=== PATIENT | female | born 1980 | race Caucasian/White ===

== ENCOUNTER 2016-11-18 04:53 | Emergency (ER) | payer SELFPAY ==
[~2016-11-18] VITALS: Ht 167.6 cm; Wt 100.0 kg
[~2016-11-18 04:53] MED LIST: BUSP10 PO; GABA300C3 PO; IBUP800T23 PO; LAMI25TA3 PO; LEVO75TA3 PO; TRAZ50TA4 PO
[2016-11-18 04:59] VITALS: BP 145/75; PULSE 86; RESP 14; TEMP 97.8; O2SAT 97
[2016-11-18] MEDS ORDERED: SODIUM CHLOR 0.9% 1000 ML INJ 1,000 ML IV SCH (05:18)
[2016-11-18] MEDS ORDERED: BUSP10TA PO (05:21)
[2016-11-18] MEDS ORDERED: CLON0.2T PO (05:21)
[2016-11-18] MEDS ORDERED: TRAZ50TA12 PO (05:21)
[2016-11-18] MEDS ORDERED: LAMO25 PO (05:21)
--- NOTE | 2016-11-18 05:21 | PD ---
HPI Chief Complaint: GI Complaint Time Seen by Provider: 05:09 Travel History International Travel<30 days: No Contact w/Intl Traveler<30days: No Traveled to known affect area: No History of Present Illness HPI This is a 36-year-old female who presents to the emergency department with nausea and vomiting that started yesterday, constant, persisting overnight with 3 episodes this morning. She's been belching frequently. She says she's been vomiting up bile. She says 2 days ago she had some blood in her stool in her rectum when she wiped and some blood was getting in the toilet. She does have hemorrhoids. She's not been having pain in her rectum at all. She's not sure if these 2 things are related. She denies any fevers or chills. She says she was has some dysuria because she has a bladder sling. She's had a hysterectomy in the past. She says her last bowel movement was 2 days ago which is unusual for her and usually she has a bowel movement every day. 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 PFSH Past Medical History Arthritis: Yes Autoimmune Disease: No Anxiety: Yes Depression: Yes Cardiovascular Problems: No Diabetes: No Endocrine: No Genitourinary: No Immune Disorder: No Implanted Vascular Access Dvce: No Musculoskeletal: Yes Neurologic: No Reproductive: No Respiratory: No Immunizations Current: Yes Thyroid Disease: Yes ?: Not Tubal Ligation: Yes Past Surgical History Genitourinary Surgery: Yes (BLADDER REPAIR AND SLING) Hysterectomy: Yes Social History Alcohol Use: No Tobacco Use: Yes (1 PPD) Substance Use: No (hx of drug use-currently in rehab) Allergies-Medications (Allergen,Severity, Reaction): Coded Allergies: Ultram (Verified Allergy, Severe, Hives, 11/18/16) Reported Meds & Prescriptions Reported Meds & Active Scripts Active Reported Clonidine (Clonidine HCl) 0.2 Mg Tab 0.2 Mg PO HS PRN Buspirone (Buspirone HCl) 10 Mg Tab 10 Mg PO DAILY Lamictal (Lamotrigine) 25 Mg Tab 25 Mg PO DAILY Trazodone (Trazodone HCl) 50 Mg Tab 50 Mg PO HS Review of Systems Except as stated in HPI: all other systems reviewed are Neg Physical Exam Narrative GENERAL: Uncomfortable appearing, actively vomiting. SKIN: Warm and dry. HEAD: Atraumatic. Normocephalic. EYES: Pupils equal and round. No injection or drainage. ENT: Moist mucous membranes NECK: Trachea midline. CARDIOVASCULAR: Regular rate and rhythm. No murmur appreciated. RESPIRATORY: Clear to auscultation. Breath sounds equal bilaterally. GASTROINTESTINAL: Abdomen soft, non-tender, nondistended. MUSCULOSKELETAL: No obvious deformities. NEUROLOGICAL: Awake and alert. No obvious cranial nerve deficits. Moving all extremities. PSYCHIATRIC: Appropriate mood and affect; insight and judgment normal. Data Data Last Documented VS Vital Signs Date Time Temp Pulse Resp B/P Pulse Ox O2 Delivery O2 Flow Rate FiO2 11/18/16 04:59 97.8 86 14 145/75 97 Room Air Orders Complete Blood Count With Diff (11/18/16 05:18) Comprehensive Metabolic Panel (11/18/16 05:18) Lipase (11/18/16 05:18) Urinalysis - C+S If Indicated (11/18/16 05:18) Ct Abd/Pel W Iv Contrast(Rout) (11/18/16 05:18) Iv Access Insert/Monitor (11/18/16 05:18) Ecg Monitoring (11/18/16 05:18) Oximetry (11/18/16 05:18) Ondansetron Inj (Zofran Inj) (11/18/16 05:30) Sodium Chlor 0.9% 1000 Ml Inj (Ns 1000 M (11/18/16 05:18) Sodium Chloride 0.9% Flush (Ns Flush) (11/18/16 05:30) Iohexol 350 Inj (Omnipaque 350 Inj) (11/18/16 06:16) Labs Laboratory Tests Test 11/18/16 11/18/16 05:25 05:40 White Blood Count 11.6 TH/MM3 Red Blood Count 4.24 MIL/MM3 Hemoglobin 14.0 GM/DL Hematocrit 40.7 % Mean Corpuscular Volume 96.0 FL Mean Corpuscular Hemoglobin 33.0 PG Mean Corpuscular Hemoglobin 34.4 % Concent Red Cell Distribution Width 12.5 % Platelet Count 189 TH/MM3 Mean Platelet Volume 10.2 FL Neutrophils (%) (Auto) 53.8 % Lymphocytes (%) (Auto) 35.9 % Monocytes (%) (Auto) 7.3 % Eosinophils (%) (Auto) 2.8 % Basophils (%) (Auto) 0.2 % Neutrophils # (Auto) 6.2 TH/MM3 Lymphocytes # (Auto) 4.2 TH/MM3 Monocytes # (Auto) 0.8 TH/MM3 Eosinophils # (Auto) 0.3 TH/MM3 Basophils # (Auto) 0.0 TH/MM3 CBC Comment DIFF FINAL Differential Comment Sodium Level 138 MEQ/L Potassium Level 4.0 MEQ/L Chloride Level 105 MEQ/L Carbon Dioxide Level 27.2 MEQ/L Anion Gap 6 MEQ/L Blood Urea Nitrogen 12 MG/DL Creatinine 0.78 MG/DL Estimat Glomerular Filtration 85 ML/MIN Rate Random Glucose 95 MG/DL Calcium Level 8.3 MG/DL Total Bilirubin 0.5 MG/DL Aspartate Amino Transf 16 U/L (AST/SGOT) Alanine Aminotransferase 15 U/L (ALT/SGPT) Alkaline Phosphatase 69 U/L Total Protein 7.0 GM/DL Albumin 3.3 GM/DL Lipase 101 U/L Urine Color YELLOW Urine Turbidity HAZY Urine pH 6.0 Urine Specific Sneads 1.028 Urine Protein TRACE mg/dL Urine Glucose (UA) NEG mg/dL Urine Ketones NEG mg/dL Urine Occult Blood SMALL Urine Nitrite NEG Urine Bilirubin NEG Urine Urobilinogen LESS THAN 2.0 MG/DL Urine Leukocyte Esterase NEG Urine RBC 10 /hpf Urine WBC 3 /hpf Urine Squamous Epithelial 6 /hpf Cells Urine Hyaline Casts 4 /lpf Urine Mucus MANY /lpf Microscopic Urinalysis Comment CULT NOT INDICATED MDM Medical Decision Making Medical Screen Exam Complete: Yes Emergency Medical Condition: Yes Interpretation(s) Afebrile, no tachycardia, hypertensive Mild leukocytosis Electrolytes are reassuring Lipase is normal Urinalysis: Some blood Last 24 hours Impressions Abdomen/Pelvis CT 11/18/16 0518 Signed Impressions: Service Date/Time: Friday, November 18, 2016 06:14 - CONCLUSION: 1. Left ovarian cyst. 2. Otherwise unremarkable. Reji Rhodes MD Differential Diagnosis Urinary tract infection, pyelonephritis, bowel obstruction, gastroenteritis Narrative Course This is a 36-year-old female who presents to the emergency department with vomiting for 2 days associated with some rectal bleeding. She has no abdominal pain. She is placed on a monitor and an IV was established. Labs are obtained which were all reassuring with a normal hemoglobin. CT abdomen and pelvis was negative for surgical etiology of the patient's symptoms. She was given IV fluids and IV Zofran and she feels much better. She was Hemoccult positive and had internal and external hemorrhoids on exam. I think that her blood in her stool is likely due to hemorrhoids and I think it's unrelated to her current presentation of vomiting. I did ask her to return to the emergency department if she starts to pass blood clots, gets lightheaded or dizzy or develops worsening symptoms. She is amenable to going home and following up as an outpatient. [facility] Point of Care Internal Pos. & Neg. Controls: Passed Fecal Specimen Occult Blood: Positive Diagnosis Primary Impression: Vomiting Qualified Code: R11.2 - Non-intractable vomiting with nausea, unspecified vomiting type Patient Instructions: General Instructions Additional Instructions: If you develop severe or worsening abdominal pain, fever>100.4, persistent vomiting or inability to eat or drink return to the emergency department immediately. Follow up with your primary care physician in 1-2 days for a check-up. If your rectal bleeding persists you should follow up with a can reforming machine operator. Med/Other Pt SpecificInfo: Prescription(s) given Scripts Ondansetron Odt (Zofran Odt)4 Mg Tab4 Mg SL Q6HR PRN (Nausea/Vomiting) #15 TAB Ref 0 Prov:Bri Brnatley MD 11/18/16 Disposition: 01 DISCHARGE HOME Condition: Stable Bri Brantley MD Nov 18, 2016 05:21
[2016-11-18] MEDS ORDERED: ONDANSETRON HCL 4 MG/2 ML VIAL IVP ONE (05:30)
[2016-11-18] MEDS ORDERED: SODIUM CHLORIDE 0.9% FLUSH 5 ML FLUSH IVF PRN (05:30)
[2016-11-18 06:02] LABS: AUTOMATED NEUTROPHIL # 6.2 TH/MM3 (1.8-7.7); BASOPHIL % 0.2 % (0.0-2.0); EOSINOPHIL # 0.3 TH/MM3 (0-0.4); EOSINOPHIL % 2.8 % (0.0-4.0); HEMATOCRIT 40.7 % (35.0-46.0); HEMO FLAGS DIFF FINAL; LYMPH % 35.9 % (9.0-44.0); LYMPHOCYTE # 4.2 TH/MM3 (1.0-4.8); MEAN CORPUSCULAR HGB CONC 34.4 % (32.0-36.0); MONO % 7.3 % (0.0-8.0); NEUT % 53.8 % (16.0-70.0); PLATELET COUNT 189 TH/MM3 (150-450); RED BLOOD COUNT 4.24 MIL/MM3 (4.00-5.30); RED CELL DISTRIBUTION WIDTH 12.5 % (11.6-17.2); WHITE BLOOD COUNT 11.6 TH/MM3 (4.0-11.0)
[2016-11-18 06:14] LABS: ANION GAP 6 MEQ/L (5-15); AST (GOT) 16 U/L (15-37); BICARBONATE 27.2 MEQ/L (21.0-32.0); BLOOD UREA NITROGEN 12 MG/DL (7-18); CHLORIDE 105 MEQ/L (98-107); GLOMERULAR FILTRATION RATE 85 ML/MIN (>89); SODIUM (NA) 138 MEQ/L (136-145)
[2016-11-18 06:15] LABS: BLOOD, URINE SMALL (NEG); COMMENT (UR) CULT NOT INDICATED; CULTURE IF INDICATED CULT NOT INDICATED; GLUCOSE,URINE NEG (NEG); HYALINE CAST, URINE 4 /lpf (RARE); KETONE, URINE NEG (NEG); MUCUS URINE MANY /lpf (OCC); NITRITE,URINE NEG (NEG); SQUAMOUS EPITHELIAL CELL URINE 6 /hpf (0-5); URINE COLOR YELLOW (YELLW/STRAW)
[2016-11-18] MEDS ORDERED: IOHEXOL 350 MG/ML 10 ML VIAL (for RAD DIAG) IV ONE (06:16)
[2016-11-18 06:22] LABS: ALKALINE PHOSPHATASE 69 U/L (45-117); ALT (GPT) 15 U/L (10-53); TOTAL BILIRUBIN ADULT 0.5 MG/DL (0.2-1.0)
--- NOTE | 2016-11-18 06:44 | RADRPT ---
EXAM DATE/TIME: 11/18/2016 06:14 [facility] COMPARISON: CT ABDOMEN & PELVIS W CONTRAST, October 13, 2012, 1:00. INDICATIONS : Nausea and vomiting with blood in stool. IV CONTRAST: 100 cc Omnipaque 350 (iohexol) IV ORAL CONTRAST: No oral contrast ingested. RADIATION DOSE: 16.60 CTDIvol (mGy) MEDICAL HISTORY : None SURGICAL HISTORY : Hysterectomy. Tubal ligation.Bladder sling ENCOUNTER: Initial ACUITY: 2 days PAIN SCALE: 0/10 LOCATION: abdomen TECHNIQUE: Volumetric scanning of the abdomen and pelvis was performed. Using automated exposure control and ad justment of the mA and/or kV according to patient size, radiation dose was kept as low as reasonably achievable to obtain optimal diagnostic quality images. FINDINGS: LOWER LUNGS: The visualized lower lungs are clear. LIVER: Homogeneous density without lesion. There is no dilation of the biliary tree. No calcified gallston es. SPLEEN: Normal size without lesion. PANCREAS: Within normal limits. KIDNEYS: Normal in size and shape. There is no mass, stone or hydronephrosis. ADRENAL GLANDS: Within normal limits. VASCULAR: There is no aortic aneurysm. BOWEL/MESENTERY: The stomach, small bowel, and colon demonstrate no acute abnormality. There is no free intraperitone al air or fluid. ABDOMINAL WALL: Within normal limits. RETROPERITONEUM: There is no lymphadenopathy. BLADDER: No wall thickening or mass. REPRODUCTIVE: Hysterectomy. 3.3 x 2.5 cm simple cyst left ovary. INGUINAL: There is no lymphadenopathy or hernia. MUSCULOSKELETAL: Within normal limits for patient age. CONCLUSION: 1. Left ovarian cyst. 2. Otherwise unremarkable. Reji Rhodes MD on November 18, 2016 at 6:40 Board Certified Radiologist. This report was verified electronically.
[2016-11-18] MEDS ORDERED: ZOFR4TAB3 SL (06:59)
[2016-11-18] MEDS ORDERED: ONDANSETRON HCL 4 MG/2 ML VIAL IV ONE (07:15)
== END 2016-11-18 07:18 | disposition home or self-care (01) ==
LOC: NEPC 04:53
DX: R11.2 Nausea with vomiting, unspecified (principal)
CPT/HCPCS: 74177; 80053; 81001; 83690; 85025; 96361; 96374; 96376; 99284; J2405; J7030; Q9967

== ENCOUNTER 2017-07-09 14:36 | Emergency (ER) | payer MEDICAID ==
[~2017-07-09 14:36] MED LIST changes: -BUSP10 PO; +BUSP10TA PO; +CLON0.2T PO; -GABA300C3 PO; -IBUP800T23 PO; -LAMI25TA3 PO; +LAMO25 PO; -LEVO75TA3 PO; +TRAZ50TA12 PO; -TRAZ50TA4 PO; +ZOFR4TAB3 SL
[2017-07-09 14:43] VITALS: BP 121/81; PULSE 83; RESP 20; TEMP 98.9; O2SAT 97
[2017-07-09] MEDS ORDERED: SERO200T PO (14:59)
[2017-07-09] MEDS ORDERED: PRED20 PO (15:40)
[2017-07-09] MEDS ORDERED: LORATADINE 10 MG TAB PO ONE (15:45)
[2017-07-09] MEDS ORDERED: methylPREDNISolone SOD SUCC 125 MG/2 ML VIAL IM ONE (15:45)
[2017-07-09] MEDS ORDERED: FAMOTIDINE 20 MG TAB PO ONE (15:45)
--- NOTE | 2017-07-09 15:46 | PD ---
HPI Chief Complaint: Facial Pain or Swelling Time Seen by Provider: 15:22 Travel History International Travel<30 days: No Contact w/Intl Traveler<30days: No Traveled to known affect area: No History of Present Illness HPI 37-year-old female presents to the emergency room for evaluation of facial swelling since yesterday. States 2 days ago she applied her daughter's primer for the second time ever. The following day (yesterday) she woke up with mild swelling but states it just felt like just she didn't get enough sleep. When she woke up today the swelling was significantly worse and her skin started to burn. She has been applying cool compresses without relief in symptoms. She took 50 mg Benadryl 3 hours prior to arrival. She denies sore throat, difficulty breathing, or chest tightness. No other environmental allergies. No other new environmental, medication, or food exposures. PFSH Past Medical History Arthritis: Yes Autoimmune Disease: No Anxiety: Yes Depression: Yes Cardiovascular Problems: No Diabetes: No Endocrine: No Genitourinary: No Immune Disorder: No Implanted Vascular Access Dvce: No Musculoskeletal: Yes Neurologic: No Reproductive: No Respiratory: No Immunizations Current: Yes Thyroid Disease: Yes Tubal Ligation: Yes Past Surgical History Genitourinary Surgery: Yes (BLADDER REPAIR AND SLING) Hysterectomy: Yes Social History Alcohol Use: No Tobacco Use: Yes (1 PPD) Substance Use: No (hx of drug use-currently in rehab) Allergies-Medications (Allergen,Severity, Reaction): Coded Allergies: tramadol (Unverified Allergy, Severe, Hives, 07/09/17) Reported Meds & Prescriptions Reported Meds & Active Scripts Active Reported Seroquel (Quetiapine Fumarate) 200 Mg Tab 200 Mg PO HS Buspirone (Buspirone HCl) 10 Mg Tab 10 Mg PO DAILY Lamictal (Lamotrigine) 25 Mg Tab 25 Mg PO DAILY Review of Systems Except as stated in HPI: all other systems reviewed are Neg Physical Exam Narrative GENERAL: Well-nourished, well-developed female in no acute distress. Afebrile. Ambulatory. SKIN: Focused skin assessment warm/dry. Mild erythema throughout the face. Very mild nonpitting edema generalized throughout the face. HEAD: Normocephalic. EYES: No scleral icterus. No injection or drainage. NECK: Supple, trachea midline. No JVD or lymphadenopathy. CARDIOVASCULAR: Regular rate and rhythm without murmurs, gallops, or rubs. RESPIRATORY: Breath sounds equal bilaterally. No accessory muscle use. PSYCHIATRIC: No delusional thought processes. No hallucinations. Data Data Last Documented VS Vital Signs Date Time Temp Pulse Resp B/P (MAP) Pulse Ox O2 Delivery O2 Flow Rate FiO2 07/09/17 14:43 98.9 83 20 121/81 (94) 97 Orders Orders Methylprednisolone So Succ Inj (Solumedr (07/09/17 15:45) Loratadine (Claritin) (07/09/17 15:45) Famotidine (Pepcid) (07/09/17 15:45) MDM Medical Decision Making Medical Screen Exam Complete: Yes Emergency Medical Condition: Yes Medical Record Reviewed: Yes Differential Diagnosis Allergic reaction, contact dermatitis, urticaria, edema Narrative Course 37-year-old female presents to the emergency room for evaluation of facial swelling for the past 2 days. Swelling started after patient applied makeup for the second time ever. It is worsening over time. She denies sore throat, chest tightness, difficulty breathing. Vital signs stable. She is well- appearing. There is mild to moderate erythema and edema of the face as compared to photo on her phone in the distribution of makeup. This is allergic reaction. Patient was given 125 mg of Solu-Medrol, Pepcid, and Claritin the emergency room. She was discharged with prescription for prednisone, told to avoid the makeup, and told to follow up with primary care physician or return for worsening symptoms. She understands and agrees to plan. Diagnosis Primary Impression: Allergic reaction Qualified Codes: T78.40XA - Allergy, unspecified, initial encounter Referrals: Primary Care Physician Additional Instructions: Rest and drink plenty of fluids. Take prednisone as directed, until gone. Continue taking Benadryl as directed on box. Take Pepcid as directed on box. Follow-up with a primary care physician. Return to the emergency room for worsening symptoms. Med/Other Pt SpecificInfo: Prescription(s) given Scripts Prednisone (Prednisone) 20 Mg Tab 40 MG PO DAILY, #10 TAB 0 Refills Take 40 mg (2 tablets) daily for 5 days Prov: HuynhNae brand 07/09/17 Disposition: 01 DISCHARGE HOME Condition: Stable Isi Cross Jul 09, 2017 15:46
== END 2017-07-09 16:15 | disposition home or self-care (01) ==
LOC: PHEFT 14:36
DX: T78.40XA Allergy, unspecified, initial encounter (principal); F17.210 Nicotine dependence, cigarettes, uncomplicated; M19.90 Unspecified osteoarthritis, unspecified site; E07.9 Disorder of thyroid, unspecified
CPT/HCPCS: 96372; 99284; J2930

== ENCOUNTER 2017-08-20 04:45 | Observation (INO) | payer MEDICAID ==
[~2017-08-20] VITALS: Ht 167.6 cm; Wt 105.0 kg
[~2017-08-20 04:45] MED LIST changes: -CLON0.2T PO; +PRED20 PO; +SERO200T PO; -TRAZ50TA12 PO; -ZOFR4TAB3 SL
[2017-08-20 04:48] VITALS: BP 122/63; PULSE 116; RESP 22; TEMP 98.3; O2SAT 98
[2017-08-20] MEDS ORDERED: PROZ20CA11 PO (04:51)
[2017-08-20] MEDS ORDERED: BUSP15TA PO (04:57)
[2017-08-20 04:58] VITALS: RESP 22; O2SAT 98
[2017-08-20] MEDS ORDERED: SODIUM CHLOR 0.9% 1000 ML INJ 1,000 ML IV ONE (05:00)
[2017-08-20] MEDS ORDERED: ONDANSETRON HCL 4 MG/2 ML VIAL IV ONE (05:00)
[2017-08-20] MEDS ORDERED: PANTOPRAZOLE SODIUM 40 MG VIAL IV PUSH ONE ×2 (05:00→07:00)
--- NOTE | 2017-08-20 05:04 | PD ---
HPI Chief Complaint: Chest Pain Time Seen by Provider: 04:56 Travel History International Travel<30 days: No Contact w/Intl Traveler<30days: No Traveled to known affect area: No History of Present Illness HPI The patient is a 37 year old female who presents to the [facility] emergency department with a history of chest pain and shortness of breath that she reports began at work this evening. She reports that chest pain seemed to be improving with resting and then would recur. She reports that the pain is in the center of her chest and a pressure sensation. She reports that bending over or exerting herself made it worse. The patient reports that over the last 2 days she has relapsed with using methamphetamines and Dariela. She reports that she had been clean and sober for 19 months up until the relapsed. She reports that she last used at 8 p.m. The patient denies ever having chest pain previously. She reports that she does have a history of anxiety. She reports that she has not been taking her psychiatric medications for the last 2 days. The patient reports feeling twitchy and anxious. The patient reports that she finally decided upon ambulance services when she became nauseated and vomited twice. She reports that the vomit appeared to be containing coffee-ground emesis. The patient denies having any blood in her stool or black or tarry stools. She reports having problems with chronic constipation. Her last bowel movement was 2 days ago. On review of systems otherwise, the patient denies having any known recent fevers, cough, congestion, neck pain, abdominal pain, urinary symptoms, or neurologic symptoms. LMP: Status post hysterectomy PFSH Past Medical History Narrative Medical The patient's past medical history is significant for anxiety and depression, arthritis Arthritis: Yes Autoimmune Disease: No Anxiety: Yes Depression: Yes Cardiovascular Problems: No Diabetes: No Endocrine: No Genitourinary: No Immune Disorder: No Implanted Vascular Access Dvce: No Musculoskeletal: Yes Neurologic: No Reproductive: No Respiratory: No Immunizations Current: Yes Thyroid Disease: Yes ?: Not Tubal Ligation: Yes Past Surgical History Narrative Surgical The patient's past surgical history is significant for a bladder sling, hysterectomy, right knee surgery. Genitourinary Surgery: Yes (BLADDER REPAIR AND SLING) Hysterectomy: Yes (PARTIAL) Social History Alcohol Use: No Tobacco Use: Yes (1 PPD) Substance Use: No (hx of drug use-currently in rehab) Allergies-Medications (Allergen,Severity, Reaction): Coded Allergies: tramadol (Unverified Allergy, Severe, Hives, 08/20/17) Reported Meds & Prescriptions Reported Meds & Active Scripts Active Reported Buspirone (Buspirone HCl) 15 Mg Tab 15 Mg PO BID Prozac (Fluoxetine HCl) 20 Mg Cap 20 Mg PO BID Seroquel (Quetiapine Fumarate) 200 Mg Tab 200 Mg PO HS Lamictal (Lamotrigine) 25 Mg Tab 25 Mg PO DAILY Review of Systems Except as stated in HPI: all other systems reviewed are Neg General / Constitutional: No: Fever Eyes: No: Visual changes HENT: No: Headaches, Rhinorrhea, Congestion Cardiovascular: Positive: Chest Pain or Discomfort, Dyspnea on exertion Respiratory: No: Shortness of Breath Gastrointestinal: Positive: Nausea, Vomiting, Hematemesis, Constipation, No: Diarrhea, Abdominal Pain, Hematochezia, Changes in Bowel Habits, Indigestion, Loss of Appetite Genitourinary: No: Dysuria Musculoskeletal: No: Pain Skin: No Rash Neurologic: No: Weakness Psychiatric: No: Depression Endocrine: No: Polydipsia Hematologic/Lymphatic: No: Easy Bruising Physical Exam Narrative General: The patient is a well-developed well-nourished female, anxious appearing on arrival, otherwise in no acute distress. Head and Neck exam: Head is normocephalic atraumatic. Eyes: EOMI, pupils are equal round and reactive to light. Nose: Midline septum with pink mucous membranes Mouth: Dentition unremarkable. Moist mucus membranes. Posterior oropharynx is not erythematous. No tonsillar hypertrophy. Uvula midline. Airway patent. Neck: No palpable lymphadenopathy. No nuchal rigidity. No thyromegaly. Cardiovascular: Sinus tachycardia in the low 100s without murmurs, gallops, or rubs. No pulse deficit to the extremities on simultaneous auscultation and palpation of her radial artery. Lungs: Clear to auscultation bilaterally. No wheezes, rhonchi, or rales. Abdomen: Soft, without tenderness to palpation in all 4 quadrants of the abdomen. No guarding, rebound, or rigidity. Normal bowel sounds are audible. No tenderness on palpation of McBurney's point. Extremities: No clubbing, cyanosis, or edema. 2+ pulses in all 4 extremities. No calf tenderness on palpation. Back: No spinous process tenderness to palpation. No costovertebral angle tenderness to palpation. Neurologic Exam: Grossly nonfocal. The patient is not tremulous. Skin Exam: No rash noted. Intact skin that is warm and dry. Data Data Last Documented VS Vital Signs Date Time Temp Pulse Resp B/P (MAP) Pulse Ox O2 Delivery O2 Flow Rate FiO2 08/20/17 04:58 22 98 Room Air 08/20/17 04:48 98.3 116 122/63 (82) Orders Orders Electrocardiogram (08/20/17 04:56) Complete Blood Count With Diff (08/20/17 04:56) Comprehensive Metabolic Panel (08/20/17 04:56) Creatine Kinase (Cpk) (08/20/17 04:56) Ckmb (Isoenzyme) Profile (08/20/17 04:56) Troponin I (08/20/17 04:56) B-Type Natriuretic Peptide (08/20/17 04:56) Prothrombin Time / Inr (Pt) (08/20/17 04:56) Act Partial Throm Time (Ptt) (08/20/17 04:56) Lipase (08/20/17 04:56) Urinalysis - C+S If Indicated (08/20/17 04:56) Magnesium (Mg) (08/20/17 04:56) Chest, Single Ap (08/20/17 04:56) Iv Access Insert/Monitor (08/20/17 04:56) Ecg Monitoring (08/20/17 04:56) Oximetry (08/20/17 04:56) Type And Screen (08/20/17 04:56) Sodium Chlor 0.9% 1000 Ml Inj (Ns 1000 M (08/20/17 05:00) Ondansetron Inj (Zofran Inj) (08/20/17 05:00) Pantoprazole Inj (Protonix Inj) (08/20/17 05:00) Nitroglycerin 2% Oint (Nitroglycerin 2% (08/20/17 05:15) CKMB (08/20/17 05:13) CKMB% (08/20/17 05:13) Potassium Chloride Eff (K-Lyte Cl Eff) (08/20/17 06:45) Labs Laboratory Tests Test 08/20/17 05:13 White Blood Count 12.4 TH/MM3 Red Blood Count 4.06 MIL/MM3 Hemoglobin 13.1 GM/DL Hematocrit 38.8 % Mean Corpuscular Volume 95.6 FL Mean Corpuscular Hemoglobin 32.3 PG Mean Corpuscular Hemoglobin Concent 33.7 % Red Cell Distribution Width 12.9 % Platelet Count 222 TH/MM3 Mean Platelet Volume 9.6 FL Neutrophils (%) (Auto) 64.7 % Lymphocytes (%) (Auto) 22.8 % Monocytes (%) (Auto) 9.8 % Eosinophils (%) (Auto) 2.0 % Basophils (%) (Auto) 0.7 % Neutrophils # (Auto) 8.0 TH/MM3 Lymphocytes # (Auto) 2.8 TH/MM3 Monocytes # (Auto) 1.2 TH/MM3 Eosinophils # (Auto) 0.2 TH/MM3 Basophils # (Auto) 0.1 TH/MM3 CBC Comment DIFF FINAL Differential Comment Prothrombin Time 12.5 SEC Prothromb Time International Ratio 1.1 RATIO Activated Partial Thromboplast Time 25.9 SEC Blood Urea Nitrogen 18 MG/DL Creatinine 0.84 MG/DL Random Glucose 93 MG/DL Total Protein 7.6 GM/DL Albumin 3.8 GM/DL Calcium Level 9.0 MG/DL Magnesium Level 2.0 MG/DL Alkaline Phosphatase 82 U/L Aspartate Amino Transf (AST/SGOT) 30 U/L Alanine Aminotransferase (ALT/SGPT) 26 U/L Total Bilirubin 0.3 MG/DL Sodium Level 139 MEQ/L Potassium Level 3.1 MEQ/L Chloride Level 107 MEQ/L Carbon Dioxide Level 22.8 MEQ/L Anion Gap 9 MEQ/L Estimat Glomerular Filtration Rate 77 ML/MIN Total Creatine Kinase 652 U/L Creatine Kinase MB 7.6 NG/ML Creatine Kinase MB % 1.2 % Troponin I LESS THAN 0.02 NG/ML B-Type Natriuretic Peptide LESS THAN 2 PG/ML Lipase 62 U/L MDM Medical Decision Making Medical Screen Exam Complete: Yes Emergency Medical Condition: Yes Medical Record Reviewed: Yes Differential Diagnosis Withdrawal syndrome, versus acute intoxication, versus rhabdomyolysis, versus anxiety disorder, versus acute coronary syndrome, versus acid reflux, versus gastritis, versus Diamante-Hagan tear, versus peptic ulcer disease, versus hemorrhagic esophagitis Narrative Course During the course of the patients emergency department visit, the patients history, examination, and differential diagnosis were reviewed with the patient. The patient was placed on a mineralogy teacher with oximetry and frequent blood pressure monitoring. The patient had IV access obtained and blood work sent for analysis. The patient had an ECG done on arrival. The patient's ECG reveals a sinus rhythm with a heart rate of 90 with T wave inversions in leads 2 , 3, aVF, V1, V3, V4, V5, V6. No acute ST segment elevation. The patient was initially provided normal saline 1 L IV fluid bolus, Zofran 4 mg IV, Protonix 40 mg IV. The patients laboratory studies were reviewed and remarkable for a white count of 12.4, hemoglobin 13.1, platelets 222 with 9.8 monos, CMP is remarkable for potassium of 3.1 which was supplemented orally with potassium chloride, GFR 77, CPK 652, MB percent 1.2, troponin I less than 0.02, BNP is less than 2, lipase 62, PT 12.5, PTT 25.9 Radiology studies were reviewed and remarkable for a chest x-ray that shows no acute abnormality. The patient will be admitted to the hospital for continued evaluation, rule out serial cardiac enzyme protocol given the patient's T wave inversions and coffee ground emesis. Regarding the possibility of PE, pulmonary embolism Wells score is 1.5. A d- dimer is ordered to evaluate for evidence of elevation given the patient's tachycardia, however as the patient is low risk of the d-dimer is negative, no further imaging would be recommended. The patients results were discussed with the patient, including the plan of care. I explained that further testing and/ or monitoring is indicated based on the patients history, examination, and/ or laboratory findings. Therefore, I recommended admission for additional evaluation. The patient expressed understanding and was agreeable with this plan. The patient was admitted to the hospital in stable condition and sent to a bed under the care of the [facility] service. Physician Communication Physician Communication The patient's case including history, pertinent physical examination findings, and laboratory studies were discussed with Dr. Forrest. It was agreed that the patient would be admitted to the [facility] Hospital[facility] service. Diagnosis Primary Impression: Coffee ground emesis Additional Impression: Chest pain, rule out acute myocardial infarction Admitting Information Admitting Physician Requests: Edda Forrester MD Aug 20, 2017 05:04
[2017-08-20] MEDS ORDERED: NITROGLYCERIN 2% OINT 1 GM PACKET TOPICAL ONE (05:15)
[2017-08-20 05:34] LABS: BASOPHIL # 0.1 TH/MM3 (0-0.2); BASOPHIL % 0.7 % (0.0-2.0); EOSINOPHIL # 0.2 TH/MM3 (0-0.4); HEMATOCRIT 38.8 % (35.0-46.0); HEMOGLOBIN 13.1 GM/DL (11.6-15.3); LYMPH % 22.8 % (9.0-44.0); LYMPHOCYTE # 2.8 TH/MM3 (1.0-4.8); MEAN CELL VOLUME 95.6 FL (80.0-100.0); MEAN CORPUSCULAR HEMOGLOBIN 32.3 PG (27.0-34.0); MEAN CORPUSCULAR HGB CONC 33.7 % (32.0-36.0); MEAN PLATELET VOLUME 9.6 FL (7.0-11.0); MONO % 9.8 % (0.0-8.0); MONOCYTE # 1.2 TH/MM3 (0-0.9); NEUT % 64.7 % (16.0-70.0); PLATELET COUNT 222 TH/MM3 (150-450); RED BLOOD COUNT 4.06 MIL/MM3 (4.00-5.30); RED CELL DISTRIBUTION WIDTH 12.9 % (11.6-17.2); WHITE BLOOD COUNT 12.4 TH/MM3 (4.0-11.0)
[2017-08-20 05:44] LABS: INTERNATIONAL NORMALIZED RATIO 1.1 RATIO; PROTHROMBIN TIME - PATIENT 12.5 SEC (9.8-11.6)
[2017-08-20 06:10] LABS: ALBUMIN 3.8 GM/DL (3.4-5.0); ALT (GPT) 26 U/L (10-53); AST (GOT) 30 U/L (15-37); BICARBONATE 22.8 MEQ/L (21.0-32.0); BLOOD UREA NITROGEN 18 MG/DL (7-18); CHLORIDE 107 MEQ/L (98-107); CREATININE 0.84 MG/DL (0.50-1.00); GLOMERULAR FILTRATION RATE 77 ML/MIN (>89); GLUCOSE,RANDOM 93 MG/DL (74-106); LIPASE 62 U/L (73-393); SODIUM (NA) 139 MEQ/L (136-145)
[2017-08-20 06:14] LABS: ALKALINE PHOSPHATASE 82 U/L (45-117); TOTAL BILIRUBIN ADULT 0.3 MG/DL (0.2-1.0); TOTAL PROTEIN 7.6 GM/DL (6.4-8.2); TROPONIN I LESS THAN 0.02 NG/ML (0.02-0.05)
[2017-08-20] MEDS ORDERED: POTASSIUM CHLORIDE 25 MEQ EFFERVESCENT TAB PO ONE (06:45)
[2017-08-20] MEDS ORDERED: SODIUM CHLOR 0.9% 1000 ML INJ 1,000 ML IV SCH (06:51)
[2017-08-20] MEDS ORDERED: SODIUM CHLORIDE 0.9% FLUSH 10 ML FLUSH IV FLUSH PRN (07:00)
[2017-08-20] MEDS ORDERED: SENNOSIDES 8.6 MG TAB PO PRN (07:00)
[2017-08-20] MEDS ORDERED: ONDANSETRON HCL 4 MG/2 ML VIAL IVP PRN (07:00)
[2017-08-20] MEDS ORDERED: MAGNESIUM HYDROXIDE SUSP 30 ML CUP PO PRN (07:00)
[2017-08-20] MEDS ORDERED: BISACODYL 10 MG SUPP RECTAL PRN (07:00)
[2017-08-20] MEDS ORDERED: NALOXONE HCL 0.4 MG/ML AMP IV PUSH PRN (07:00)
[2017-08-20] MEDS ORDERED: LACTULOSE SYRUP 20 GM/30 ML CUP PO PRN (07:00)
--- NOTE | 2017-08-20 07:04 | RADRPT ---
EXAM DATE/TIME: 08/20/2017 05:03 [facility] COMPARISON: No previous studies available for comparison. INDICATIONS : Chest pain- Vomiting blood MEDICAL HISTORY : None. SURGICAL HISTORY : Tubal ligation. Hysterectomy. ENCOUNTER: Initial ACUITY: 1 day PAIN SCORE: 7/10 LOCATION: Bilateral chest FINDINGS: A single view of the chest demonstrates the lungs to be symmetrically aerated without evidence of mas s, infiltrate or effusion. The cardiomediastinal contours are unremarkable. Osseous structures are intact. CONCLUSION: No acute disease. Naeem Petit MD on August 20, 2017 at 7:02 Board Certified Radiologist. This report was verified electronically.
--- NOTE | 2017-08-20 07:37 | HHI.HP ---
HPI Service [facility] Primary Care Physician No Primary Care Physician Admission Diagnosis Coffee ground emesis, cp r/o mi Diagnoses: Chief Complaint: chest pain, shortness of breath, vomiting Travel History International Travel<30 Days: No Contact w/Intl Traveler <30 Da: No Traveled to Known Affected Are: No History of Present Illness Written by Yissel Denton, acting as scribe for Dr. Woody on 08/20/17 at 07: 35. 37-year-old female with history of bipolar disorder, anxiety, IV drug abuse, presents with a 1 day history of chest pain, shortness of breath, and coffee ground emesis. The patient reports she has been clean and sober for the past 19months however relapsed 2 days ago and started injecting both methamphetamine and Rosy. She started to not feel well yesterday with chest pain and shortness of breath. She reports diffuse anterior and substernal chest pressure described as dull and achy, worse with leaning forward, relieved by lying back, associated with diaphoresis, shortness of breath. Last night she became acutely nauseous and vomited coffee ground emesis twice. Denies any recent fever/ chills. The patient admits she hasn't been eating or drinking normally in the past 2 days and she feels very dehydrated. She also hasn't had a BM in 4 days. Denies any specific abdominal pains. She has felt lightheaded but denies any loss of consciousness. She was unsure if her symptoms were just related to the drugs or severe indigestion. Last drug use 8pm last night 08/19 prior to presenting to the hospital. She has not been taking her psychiatric medications in 3-4 days. She sees a psychiatrist at [facility]. She denies any other medical complaints at this time. Review of Systems Except as stated in HPI: all other systems reviewed are Neg Past Family Social History Past Medical History Bipolar disorder Anxiety Past Surgical History Hysterectomy in 2013 Bladder sling Right knee surgery Reported Medications Buspirone (Buspirone HCl) 15 Mg Tab 15 Mg PO BID Prozac (Fluoxetine HCl) 20 Mg Cap 20 Mg PO BID Seroquel (Quetiapine Fumarate) 200 Mg Tab 200 Mg PO HS Lamictal (Lamotrigine) 25 Mg Tab 25 Mg PO DAILY Allergies: Coded Allergies: tramadol (Unverified Allergy, Severe, Hives, 08/20/17) Active Ordered Medications Current Medications Medications (Trade) Dose Ordered Sig/Kareen Route Start Time Stop Time Status Last Admin Sodium Chloride 1,000 ml @ 100 mls/hr Q10H IV 08/20/17 06:51 08/20/17 07:29 (NS Flush) 2 ml UNSCH PRN IV FLUSH 08/20/17 07:00 (NS Flush) 2 ml BID IV FLUSH 08/20/17 09:00 (Zofran Inj) 4 mg Q6H PRN IVP 08/20/17 07:00 (Narcan Inj) 0.4 mg UNSCH PRN IV PUSH 08/20/17 07:00 (Milk Of Magnesia Liq) 30 ml Q12H PRN PO 08/20/17 07:00 (Senokot) 17.2 mg Q12H PRN PO 08/20/17 07:00 (Dulcolax Supp) 10 mg DAILY PRN RECTAL 08/20/17 07:00 (Lactulose Liq) 30 ml DAILY PRN PO 08/20/17 07:00 (Protonix Inj) 40 mg Q12H IV PUSH 08/20/17 21:00 Family History Mother with ovarian cancer in her 30s, with COPD at age 49 Father with skin cancer Mother with heart disease Social History Smokes tobacco 1PPD since age 15 Very rare alcohol use, last drink 1.5years ago Previously used drugs from age 30 to 34 (mostly pain pills, some meth), then clean for 19months, now relapsed x2 days, injecting and smoking methamphetamine and rosy Physical Exam Vital Signs Vital Signs Date Time Temp Pulse Resp B/P (MAP) Pulse Ox O2 Delivery O2 Flow Rate FiO2 08/20/17 04:58 22 98 Room Air 08/20/17 04:48 98.3 116 22 122/63 (82) 98 Physical Exam GENERAL: Well-nourished, well-developed middle aged female patient in [facility]. SKIN: Warm and dry. No rash. HEAD: Normocephalic. Atraumatic. EYES: Pupils equal and round. No scleral icterus. No injection or drainage. ENT: No nasal bleeding or discharge. Mucous membranes pink and moist. NECK: Supple. Trachea midline. CARDIOVASCULAR: Regular rate and rhythm. S1, S2 noted. No murmur appreciated. RESPIRATORY: No accessory muscle use. Clear to auscultation. Breath sounds equal bilaterally. GASTROINTESTINAL: Abdomen soft, non-tender, nondistended. Normoactive bowel sounds x4. MUSCULOSKELETAL: No obvious deformities. Extremities without clubbing, cyanosis , or edema. NEUROLOGICAL: Awake and alert. No obvious cranial nerve deficits. Motor grossly within normal limits. 5/5 muscle strength in bilateral upper and lower extremities. Normal speech. PSYCHIATRIC: Very anxious and fidgety; insight and judgment normal. Laboratory Laboratory Tests Test 08/20/17 05:13 White Blood Count 12.4 Red Blood Count 4.06 Hemoglobin 13.1 Hematocrit 38.8 Mean Corpuscular Volume 95.6 Mean Corpuscular Hemoglobin 32.3 Mean Corpuscular Hemoglobin Concent 33.7 Red Cell Distribution Width 12.9 Platelet Count 222 Mean Platelet Volume 9.6 Neutrophils (%) (Auto) 64.7 Lymphocytes (%) (Auto) 22.8 Monocytes (%) (Auto) 9.8 Eosinophils (%) (Auto) 2.0 Basophils (%) (Auto) 0.7 Neutrophils # (Auto) 8.0 Lymphocytes # (Auto) 2.8 Monocytes # (Auto) 1.2 Eosinophils # (Auto) 0.2 Basophils # (Auto) 0.1 CBC Comment DIFF FINAL Differential Comment Prothrombin Time 12.5 Prothromb Time International Ratio 1.1 Activated Partial Thromboplast Time 25.9 D-Dimer Quantitative (PE/DVT) 0.32 Blood Urea Nitrogen 18 Creatinine 0.84 Random Glucose 93 Total Protein 7.6 Albumin 3.8 Calcium Level 9.0 Magnesium Level 2.0 Alkaline Phosphatase 82 Aspartate Amino Transf (AST/SGOT) 30 Alanine Aminotransferase (ALT/SGPT) 26 Total Bilirubin 0.3 Sodium Level 139 Potassium Level 3.1 Chloride Level 107 Carbon Dioxide Level 22.8 Anion Gap 9 Estimat Glomerular Filtration Rate 77 Total Creatine Kinase 652 Creatine Kinase MB 7.6 Creatine Kinase MB % 1.2 Troponin I LESS THAN 0.02 B-Type Natriuretic Peptide LESS THAN 2 Lipase 62 Result Diagram: 08/20/1751208/20/17512 Imaging Last Impressions Chest X-Ray 08/20/17 0456 Signed Impressions: Service Date/Time: Sunday, August 20, 2017 05:03 - CONCLUSION: No acute disease. MD Svetlana Skinner VTE Risk Assessment Svetlana VTE Risk Assessment: No/Low Risk (score <= 1) Spikerini Risk Assessment Model Point Value = 1 Point Value = 2 Point Value = 3 Point Value = 5 Age 41-60 Minor surgery BMI > 25 kg/m2 Swollen legs Varicose veins or History of unexplained or recurrent spontaneous Oral contraceptives or hormone replacement Sepsis (< 1 month) Serious lung disease, including pneumonia (< 1 month) Abnormal pulmonary function Acute myocardial infarction Congestive heart failure (< 1 month) History of inflammatory bowel disease Medical patient at bed rest Age 61-74 Arthroscopic surgery Major open surgery (> 45 min) Laparoscopic surgery (> 45 min) Malignancy Confined to bed (> 72 hours) Immobilizing plaster cast Central venous access Age >= 75 History of VTE Family history of VTE Factor V Leiden Prothrombin [id number] Lupus anticoagulant Anticardiolipin antibodies Elevated serum homocysteine Heparin-induced thrombocytopenia Other congenital or acquired thrombophilia Stroke (< 1 month) Elective arthroplasty Hip, pelvis, or leg fracture Acute spinal cord injury (< 1 month) Prophylaxis Regimen Total Risk Factor Score Risk Level Prophylaxis Regimen 0-1 Low Early ambulation 2 Moderate Order ONE of the following: *Sequential Compression Device (SCD) *Heparin 5000 units SQ BID 3-4 Higher Order ONE of the following medications: *Heparin 5000 units SQ TID *Enoxaparin/Lovenox 40 mg SQ daily (WT < 150 kg, CrCl > 30 mL/min) *Enoxaparin/Lovenox 30 mg SQ daily (WT < 150 kg, CrCl > 10-29 mL/min) *Enoxaparin/Lovenox 30 mg SQ BID (WT < 150 kg, CrCl > 30 mL/min) AND/OR *Sequential Compression Device (SCD) 5 or more Highest Order ONE of the following medications: *Heparin 5000 units SQ TID (Preferred with Epidurals) *Enoxaparin/Lovenox 40 mg SQ daily (WT < 150 kg, CrCl > 30 mL/min) *Enoxaparin/Lovenox 30 mg SQ daily (WT < 150 kg, CrCl > 10-29 mL/min) *Enoxaparin/Lovenox 30 mg SQ BID (WT < 150 kg, CrCl > 30 mL/min) AND *Sequential Compression Device (SCD) Assessment and Plan Problem List: (1) Chest pain, rule out acute myocardial infarction ICD Code: R07.9 - Chest pain, unspecified Status: Acute (2) Coffee ground emesis ICD Code: K92.0 - Hematemesis Status: Acute Assessment and Plan 37-year-old female with history of bipolar disorder, anxiety, IV drug abuse, presents with a 1 day history of chest pain, shortness of breath, and coffee ground emesis. GI Bleed with Coffee Ground Emesis: x2. Hgb currently stable at 13.1. Lipase and LFTs wnl. -Continue PPI with IV Protonix 40mg bid -Supportive treatment with IVF, antiemetics prn -Trend H&H -Consult GI -Ice chips only for now Chest Pain, Dyspnea: suspect secondary to drug use however need to rule out ACS. Troponin negative however EKG with diffuse Twave inversions, no acute ST elevation. D-dimer negative, doubt PE. CXR images reviewed, no acute findings. -Continue to rule out ACS with serial cardiac enzymes and EKG -Give IVF hydration Elevated CPK: suspect secondary to recent drug use. CPK 652. -Trend CPK -Give IVF hydration Hypokalemia: K 3.1. Suspect secondary to vomiting and poor oral intake x2days. -Given po KCl replacement -Repeat K, replace as needed Polysubstance Abuse with IVDU: relapsed x2 days. Patient very anxious and fidgety on exam. Last drug use 8pm last night 08/19 prior to presenting to the hospital. -Give IV Ativan 1mg q6h prn anxiety/agitation -Counseled on cessation -Supportive treatment Bipolar/Anxiety Disorder: off medications x4 days. -Restart home meds including Seroquel, Buspar, Proxac, need to verify lamictal dosing -IV ativan prn anxiety -Consult psychiatry DVT Prophylaxis: teds/SCDs; avoid chemoprophylaxis with coffee ground emesis This note was transcribed by KARLOS Mckeon . I, Dr. Ruth Woody personally performed the history, physical exam, and medical decision making; and confirmed the accuracy of the information in the transcribed note. Authenticated by Dr. Ruth Woody on 08/20/17 at 07:35. Discussed Condition With Patient, CLASSIFICATION CLERKYissel Vogt PA-C Aug 20, 2017 07:37 Ruth Woody MD Aug 20, 2017 09:14
[2017-08-20] MEDS ORDERED: SERO200T PO (07:55)
[2017-08-20 08:29] VITALS: BP 126/74; PULSE 92; RESP 20; TEMP 99; O2SAT 98
[2017-08-20] MEDS ORDERED: LORazepam 2 MG/ML VIAL IV PUSH PRN ×2 (08:30→09:30)
[2017-08-20] MEDS ORDERED: busPIRone HCL 5 MG TAB PO SCH (09:00)
[2017-08-20] MEDS ORDERED: SODIUM CHLORIDE 0.9% FLUSH 10 ML FLUSH IV FLUSH SCH (09:00)
[2017-08-20] MEDS ORDERED: FLUoxetine HCL 20 MG CAP PO SCH (09:00)
--- NOTE | 2017-08-20 09:21 | PD.CONS ---
HPI History of Present Illness This is a 37 year old with a history of IVDA, who recently relapsed on Methamphetamines and Rosy, after being clean for 19 months. She reports that she did not sleep for a few days and was having anxiety and fidgeting. Yesterday while at work, she started having some epigastric discomfort/chest pain in her substernal area that she describes as pressure. She states this was related movement or touch. This progressively became worse and around 4am she started having more a burning epigastric pain and started having nausea. Shortly after, she vomited about a cup of coffee ground emesis x 2. She states after vomiting, her chest pain went away. She was feeling better, but started having the chest discomfort again this morning and therefore came to the emergency room. She does not have any heartburn or reflux. She does have constipation and reports that it has been worse than usual. She does not take anything for the constipation and usually has a bowel movement every 2 or 3 days. She has not had a bowel movement in 4 days. She denies any melena or hematochezia. She has been taking excedrin for the past few days, usually 3 excedrin migraine tabs for the past 3 days for headache. She denies any hx of peptic ulcer disease. She does not drink ETOH. Of note, she states that she recently put methamphetamines in toilet paper and swallowed it and is wondering if this could have caused her symptoms. PFSH Past Medical History Bipolar disorder Anxiety IVDA Past Surgical History Hysterectomy in 2013 Bladder sling Right knee surgery Coded Allergies: tramadol (Unverified Allergy, Severe, Hives, 08/20/17) Medications Allergies Coded Allergies Type Severity Reaction Last Updated Verified tramadol Allergy Severe Hives 08/20/17 No Active Scripts Medications Dose Route/Sig Max Daily Dose Days Date Category Seroquel (Quetiapine Fumarate) 200 Mg Tab 50 Mg PO HS 08/20/17 Rx Buspirone (Buspirone HCl) 15 Mg Tab 15 Mg PO BID 08/20/17 Reported Prozac (Fluoxetine HCl) 20 Mg Cap 20 Mg PO BID 08/20/17 Reported Lamictal (Lamotrigine) 25 Mg Tab 25 Mg PO DAILY 11/18/16 Reported Family History Mother had ovarian cancer in her 30s, with COPD at age 49 Father with skin cancer Paternal and Maternal GM with heart disease Social History Smokes tobacco 1PPD since age 15 Denies ETOH Previously used drugs from age 30 to 34 (mostly pain pills, some meth), then clean for 19months, now relapsed x2 days, injecting and smoking methamphetamine and rosy Review of Systems Constitutional: COMPLAINS OF: Fatigue, DENIES: Weight loss Respiratory: COMPLAINS OF: Shortness of breath, DENIES: Cough Cardiovascular: COMPLAINS OF: Chest pain Gastrointestinal: COMPLAINS OF: Abdominal pain, Constipation, Nausea, Vomiting , DENIES: Black stools, Bloody stools, Diarrhea, Swelling of Abdomen, Heartburn , Hematemesis Musculoskeletal: DENIES: Joint pain Hematologic/lymphatic: COMPLAINS OF: Bruising Neurologic: COMPLAINS OF: Headache Psychiatric: DENIES: Confusion GI Exam Vitals I&O Vital Signs Date Time Temp Pulse Resp B/P (MAP) Pulse Ox O2 Delivery O2 Flow Rate FiO2 08/20/17 08:29 99.0 92 20 126/74 (91) 98 08/20/17 04:58 22 98 Room Air 08/20/17 04:48 98.3 116 22 122/63 (82) 98 Imaging Last Impressions Chest X-Ray 08/20/17 0456 Signed Impressions: Service Date/Time: Sunday, August 20, 2017 05:03 - CONCLUSION: No acute disease. Naeem Petit MD Laboratory Test 08/20/17 05:13 White Blood Count 12.4 TH/MM3 Red Blood Count 4.06 MIL/MM3 Hemoglobin 13.1 GM/DL Hematocrit 38.8 % Mean Corpuscular Volume 95.6 FL Mean Corpuscular Hemoglobin 32.3 PG Mean Corpuscular Hemoglobin Concent 33.7 % Red Cell Distribution Width 12.9 % Platelet Count 222 TH/MM3 Mean Platelet Volume 9.6 FL Neutrophils (%) (Auto) 64.7 % Lymphocytes (%) (Auto) 22.8 % Monocytes (%) (Auto) 9.8 % Eosinophils (%) (Auto) 2.0 % Basophils (%) (Auto) 0.7 % Neutrophils # (Auto) 8.0 TH/MM3 Lymphocytes # (Auto) 2.8 TH/MM3 Monocytes # (Auto) 1.2 TH/MM3 Eosinophils # (Auto) 0.2 TH/MM3 Basophils # (Auto) 0.1 TH/MM3 CBC Comment DIFF FINAL Differential Comment Prothrombin Time 12.5 SEC Prothromb Time International Ratio 1.1 RATIO Activated Partial Thromboplast Time 25.9 SEC D-Dimer Quantitative (PE/DVT) 0.32 MG/L FEU Blood Urea Nitrogen 18 MG/DL Creatinine 0.84 MG/DL Random Glucose 93 MG/DL Total Protein 7.6 GM/DL Albumin 3.8 GM/DL Calcium Level 9.0 MG/DL Magnesium Level 2.0 MG/DL Alkaline Phosphatase 82 U/L Aspartate Amino Transf (AST/SGOT) 30 U/L Alanine Aminotransferase (ALT/SGPT) 26 U/L Total Bilirubin 0.3 MG/DL Sodium Level 139 MEQ/L Potassium Level 3.1 MEQ/L Chloride Level 107 MEQ/L Carbon Dioxide Level 22.8 MEQ/L Anion Gap 9 MEQ/L Estimat Glomerular Filtration Rate 77 ML/MIN Total Creatine Kinase 652 U/L Creatine Kinase MB 7.6 NG/ML Creatine Kinase MB % 1.2 % Troponin I LESS THAN 0.02 NG/ML B-Type Natriuretic Peptide LESS THAN 2 PG/ML Lipase 62 U/L Physical Examination HEENT: Normocephalic; atraumatic; no jaundice. CHEST: CTA. CARDIAC: RRR. ABDOMEN: Soft, nondistended, nontender; no hepatosplenomegaly; bowel sounds are present in all four quadrants. EXTREMITIES: No clubbing, cyanosis, or edema. SKIN: Normal; no rash; no jaundice. SPEECH AND LANGUAGE SPECIALIST: No focal deficits; alert and oriented times three. Anxious/fidgety Assessment and Plan Plan ASSESSMENT: - Upper GIB, Coffee ground emesis. States she developed chest discomfort, epigastric pain and then vomited coffee ground emesis x 2 prior to her arrival. Likely gastritis. HH stable. Clear liquids. PPI - Epigastric pain. PPI. Improved. - Atypical chest pain. CPK 652, CK-MB% 1.2. Likely related to drug use, gastritis. - PSA. She has hx of IVDA, who recently relapsed on Methamphetamines and Rosy , after being clean for 19 months. - Bipolar/Anxiety per attending. PLAN: - Clear liquids - Cont. PPI - Monitor HH - Notify GI of active bleeding - Supportive care - Pt seen and examined by Dr. Guallpa and myself and this note is written on her behalf Nicole Dai Aug 20, 2017 09:21
--- NOTE | 2017-08-20 10:47 | PD.AMA ---
Against Medical Advice Note Diagnosis: (1) Chest pain, rule out acute myocardial infarction (2) Coffee ground emesis (3) Polysubstance abuse (4) IVDU (intravenous drug user) Discharge Disposition: Against Medical Advice Pt Condition on Discharge: Stable AMA Statement Patient Cecilia Sher has decided to leave the hospital against medical advice. She explains that she needs to sign paperwork for housing today otherwise she won't have a place to live. This patient has the capacity to refuse care and understands the risks of leaving, including permanent disability and/or , and has had an opportunity to ask questions about her condition. The patient has been informed that she may return for care at any time, and follow up has been arranged/advised. Yissel Denton PA-C Aug 20, 2017 10:47 am
--- NOTE | 2017-08-20 12:17 | EKG ---
Date Performed: 08/20/2017 Time Performed: 05:02:43 PTAGE: 37 years EKG: Sinus rhythm MODERATE T-WAVE ABNORMALITY, CONSIDER ANTERIOR ISCHEMIA MODERATE T-WAVE ABNORMALITY, CONSIDER INFERI OR ISCHEMIA ABNORMAL ECG NO PREVIOUS TRACING DOCTOR: Akira Viramontes Interpretating Date/Time 08/20/2017 12:13:21
--- NOTE | 2017-08-20 13:05 | PD.PSY.CON ---
Provisional Diagnosis Admission Date Aug 20, 2017 at 06:58 [place] I. Methamphetamines and hallucinogens use disorder, self reported of anxiety, depression, bipolar disorder [place] II. Deferred [place] III. Hypothyroidism [place] IV. Sustained drug use [place] V. 55 History of Present Illness Service Psychiatry Consult Requested By Dr. Woody Reason for Consult Medication reconciliation Primary Care Physician No Primary Care Physician HPI The patient is a 37-year-old woman, single, domiciled with her son, employed, with psychiatric history of self reported bipolar disorder, anxiety, depression, patient has3 previous psychiatric hospitalizations, 1 previous suicidal attempts, she has an established outpatient care with [facility] and she is on Seroquel, Lamictal, BuSpar, Prozac, partial compliance, she also has history of IV drug use, including amphetamines and hallucinogens, with medical history of hypothyroidism, as per medical record documentation : "The patient reports she has been clean and sober for the past 19months however relapsed 2 days ago and started injecting both methamphetamine and Dariela. She started to not feel well yesterday with chest pain and shortness of breath. She reports diffuse anterior and substernal chest pressure described as dull and achy, worse with leaning forward, relieved by lying back, associated with diaphoresis, shortness of breath. Last night she became acutely nauseous and vomited coffee ground emesis twice. Denies any recent fever/chills. The patient admits she hasn't been eating or drinking normally in the past 2 days and she feels very dehydrated. She also hasn't had a BM in 4 days. Denies any specific abdominal pains. She has felt lightheaded but denies any loss of consciousness. She was unsure if her symptoms were just related to the drugs or severe indigestion. Last drug use 8pm last night 08/19 prior to presenting to the hospital. She has not been taking her psychiatric medications in 3-4 days. She sees a psychiatrist at [facility]. She denies any other medical complaints at this time". On psychiatric evaluation today patient was seen in the ER along with a college student Shyam Stanley. Patient was found with her boyfriend in a very inappropriate and compromising position. At the beginning of evaluation patient was very anxious and suspicious, but became calm her with redirection. The patient reports that she has been stable in her current psychotropic regimen's, even though she is taking the medications on and off. Has been seeing an outpatient psychiatrist in [facility] every month. Patient reports that she has been over for several months, but in recent days a good friend of her is visiting her and engage her again in drug use. Patient denies symptomatology of depression including anhedonia, hopelessness, helplessness, suicidal ideation and homicidal ideation. Patient denies visual and auditory hallucinations. He is oriented 3, there is no fluctuation of consciousness, there is no attention deficit, there is no gross cognitive impairment present during this evaluation. There are not any psychotic symptoms elicited, , such as paranoia, delusions of reference, agitation or aggressive behavior. However, at the end of the evaluation the patient is confronted about her inappropriate behavior with her boyfriend in the room and she became suddenly agitated and confrontative. She decided to leave the hospital AMA. Review of Systems Psychiatric: COMPLAINS OF: Anxiety Except as stated in HPI: all other systems reviewed are Neg Past Family Social History Coded Allergies: tramadol (Unverified Allergy, Severe, Hives, 08/20/17) Active Scripts Quetiapine (Seroquel) 200 Mg Tab, 50 MG PO HS for Control Mood Swing, #30 TAB 0 Refills Prov:Yissel Denton PA-C 08/20/17 Reported Medications Buspirone (Buspirone) 15 Mg Tab, 15 MG PO BID for Anxiety, TAB 0 Refills 08/20/17 Fluoxetine (Prozac) 20 Mg Cap, 20 MG PO BID, #30 CAP 0 Refills 08/20/17 Lamotrigine (Lamictal) 25 Mg Tab, 25 MG PO DAILY for Control Seizures, #30 TAB 0 Refills 11/18/16 Discontinued Reported Medications Buspirone (Buspirone) 10 Mg Tab, 10 MG PO DAILY for Anxiety, TAB 0 Refills 11/18/16 Discontinued Scripts Prednisone (Prednisone) 20 Mg Tab, 40 MG PO DAILY, #10 TAB 0 Refills Take 40 mg (2 tablets) daily for 5 days Prov:Nae Huynh DO 07/09/17 Current Medications Medications (Trade) Dose Ordered Sig/Kareen Route Start Time Stop Time Status Last Admin Sodium Chloride 1,000 ml @ 100 mls/hr Q10H IV 08/20/17 06:51 08/20/17 07:29 (NS Flush) 2 ml UNSCH PRN IV FLUSH 08/20/17 07:00 (NS Flush) 2 ml BID IV FLUSH 08/20/17 09:00 (Zofran Inj) 4 mg Q6H PRN IVP 08/20/17 07:00 (Narcan Inj) 0.4 mg UNSCH PRN IV PUSH 08/20/17 07:00 (Milk Of Magnesia Liq) 30 ml Q12H PRN PO 08/20/17 07:00 (Senokot) 17.2 mg Q12H PRN PO 08/20/17 07:00 (Dulcolax Supp) 10 mg DAILY PRN RECTAL 08/20/17 07:00 (Lactulose Liq) 30 ml DAILY PRN PO 08/20/17 07:00 (Protonix Inj) 40 mg Q12H IV PUSH 08/20/17 21:00 (Buspar) 15 mg BID PO 08/20/17 09:00 08/20/17 08:51 (PROzac) 20 mg BID PO 08/20/17 09:00 08/20/17 08:52 (Ativan Inj) 1 mg Q6H PRN IV PUSH 08/20/17 08:30 08/20/17 08:50 (Ativan Inj) 0.5 mg Q4H PRN IV PUSH 08/20/17 09:30 Family Psych History Her mother has bipolar disorder Social History Patient was born and raised in [place], she lives in [place] with her 16 years old son, employed, her highest level of education is high school Patient's Strengths (min. 2) Employed Physical Exam No withdrawal in terms, no stiffness, no EPS, no psychomotor agitation or retardation Vital Signs Vital Signs Date Time Temp Pulse Resp B/P (MAP) Pulse Ox O2 Delivery O2 Flow Rate FiO2 08/20/17 08:29 99.0 92 20 126/74 (91) 98 08/20/17 04:58 Room Air Lab Results Test 08/20/17 05:13 08/20/17 10:06 White Blood Count 12.4 TH/MM3 Red Blood Count 4.06 MIL/MM3 Hemoglobin 13.1 GM/DL 12.1 GM/DL Hematocrit 38.8 % Mean Corpuscular Volume 95.6 FL Mean Corpuscular Hemoglobin 32.3 PG Mean Corpuscular Hemoglobin Concent 33.7 % Red Cell Distribution Width 12.9 % Platelet Count 222 TH/MM3 Mean Platelet Volume 9.6 FL Neutrophils (%) (Auto) 64.7 % Lymphocytes (%) (Auto) 22.8 % Monocytes (%) (Auto) 9.8 % Eosinophils (%) (Auto) 2.0 % Basophils (%) (Auto) 0.7 % Neutrophils # (Auto) 8.0 TH/MM3 Lymphocytes # (Auto) 2.8 TH/MM3 Monocytes # (Auto) 1.2 TH/MM3 Eosinophils # (Auto) 0.2 TH/MM3 Basophils # (Auto) 0.1 TH/MM3 CBC Comment DIFF FINAL Differential Comment Prothrombin Time 12.5 SEC Prothromb Time International Ratio 1.1 RATIO Activated Partial Thromboplast Time 25.9 SEC D-Dimer Quantitative (PE/DVT) 0.32 MG/L FEU Blood Urea Nitrogen 18 MG/DL Creatinine 0.84 MG/DL Random Glucose 93 MG/DL Total Protein 7.6 GM/DL Albumin 3.8 GM/DL Calcium Level 9.0 MG/DL Magnesium Level 2.0 MG/DL Alkaline Phosphatase 82 U/L Aspartate Amino Transf (AST/SGOT) 30 U/L Alanine Aminotransferase (ALT/SGPT) 26 U/L Total Bilirubin 0.3 MG/DL Sodium Level 139 MEQ/L Potassium Level 3.1 MEQ/L Chloride Level 107 MEQ/L Carbon Dioxide Level 22.8 MEQ/L Anion Gap 9 MEQ/L Estimat Glomerular Filtration Rate 77 ML/MIN Total Creatine Kinase 652 U/L Creatine Kinase MB 7.6 NG/ML Creatine Kinase MB % 1.2 % Troponin I LESS THAN 0.02 NG/ML LESS THAN 0.02 NG/ML B-Type Natriuretic Peptide LESS THAN 2 PG/ML Lipase 62 U/L Mental Status Examination Appearance: Appropriate, Disheveled Consciousness: Alert Orientation: x4 Motor Activity: Normal gait Speech: Rapid Language: Adequate Fund of Knowledge: Adequate Attention and Concentration: Adequate Memory: Unremarkable Mood: Anxious Affect: Anxious Thought Process & Associations: Intact, Logical Thought Content: Appropriate Hallucination Type: None Delusion Type: None Suicidal Ideation: No Suicidal Plan: No Suicidal Intention: No Homicidal Ideation: No Homicidal Plan: No Homicidal Intention: No Insight: Fair Judgment: Impulsive Assessment & Plan Problem List: (1) Amphetamine abuse ICD Codes: F15.10 - Other stimulant abuse, uncomplicated Assessment & Plan: At the moment of the psychiatric evaluation the patient does not present any significant, concerning or acute evidence of subjective or objective depression, nanette or psychosis. Patient denies suicidal and homicidal ideation, patient denies visual and auditory hallucinations. Patient does report acute symptoms of anxiety that are most probably related with recent use of amphetamines and hallucinogens. At this moment the patient does not meet criteria for involuntary psychiatric admission. Patient would really benefit of a comprehensive habilitation program. She already has outpatient psychiatric care in [facility]. She should continue her outpatient care in psychotropics as prescribed. Patient does not need any immediate psychiatric intervention. She is psychiatrically stable to continue medical treatment. Assessment & Plan Estimated LOS: Roberto Gill MD Aug 20, 2017 13:05
--- NOTE | 2017-08-20 13:29 | EKG ---
Date Performed: 08/20/2017 Time Performed: 07:22:15 PTAGE: 37 years EKG: Sinus rhythm MODERATE INTRAVENTRICULAR CONDUCTION DELAY MODERATE T-WAVE ABNORMALITY, CONSIDER INFERIOR ISCHEMIA A BNORMAL ECG PREVIOUS TRACING : 08/20/2017 05.02 Compared to prior tracing no significant change DOCTOR: Akira Viramontes Interpretating Date/Time 08/20/2017 13:26:41
[2017-08-20] MEDS ORDERED: PANTOPRAZOLE SODIUM 40 MG VIAL IV PUSH SCH (21:00)
== END 2017-08-20 12:16 | disposition left against medical advice (07) ==
LOC: NEPE 04:45 → NEDA 06:58 → NEPGCP 08:44
PROVIDERS: ADMIT Hospitalist; ATTEND Hospitalist
DX: R07.89 Other chest pain (principal); K92.0 Hematemesis; E87.6 Hypokalemia; R74.8 Abnormal levels of other serum enzymes; R94.31 Abnormal electrocardiogram [ECG] [EKG]; F15.90 Other stimulant use, unspecified, uncomplicated; F17.210 Nicotine dependence, cigarettes, uncomplicated; K59.09 Other constipation; K29.70 Gastritis, unspecified, without bleeding; F31.9 Bipolar disorder, unspecified; F41.9 Anxiety disorder, unspecified; Z90.710 Acquired absence of both cervix and uterus
CPT/HCPCS: 71010; 80053; 82550; 82552; 83690; 83735; 83880; 84484; 85018; 85025; 85379; 85610; 85730; 86850; 86900; 86901; 93005; 96361; 96374; 96375; 96376; 99285; C9113; G0378; J2060; J2405; J7030